=== PATIENT | female | born 1995 | race Caucasian/White ===

== ENCOUNTER 2021-03-13 08:51 | Outpatient (REF) | payer OTHER, SELFPAY | END 2021-03-13 08:52 | disposition home or self-care (01) | LOC: HO.LAB 08:51 | PROVIDERS: Visit Provider Internal Medicine | DX: Z13.89 Encounter for screening for other disorder (principal) ==

== ENCOUNTER 2021-03-13 08:58 | Emergency (ER) | payer OTHER, SELFPAY ==
--- NOTE | ~2021-03-13 | XR_ITS ---
EXAMINATION: XR CHEST CLINICAL INFORMATION: Shortness breath, chest pain. COMPARISON: None TECHNIQUE: PA and lateral views of the chest are obtained. FINDINGS: No significant abnormality is noted involving the heart, lungs, mediastinum, bony thorax or soft tissues. XR/XR chest 2V IMPRESSION: Unremarkable examination.
--- NOTE | 2021-03-13 09:11 | ECG_ITS ---
Test Reason : chest pain Blood Pressure : / mmHG Vent. Rate : 090 BPM Atrial Rate : 090 BPM P-R Int : 116 ms QRS Dur : 084 ms QT Int : 390 ms P-R-T Axes : 042 075 126 degrees QTc Int : 477 ms Normal sinus rhythm with sinus arrhythmia Normal ECG No previous ECGs available Referred By: Avery Olson Electronically Signed By:Miguel Pettit
[2021-03-13 09:12] VITALS: BP 143/73; PULSE 93; RESP 16; TEMP 37.1; O2SAT 98; BMI 24.4
[2021-03-13 12:03] VITALS: BP 110/75; PULSE 88; RESP 15; TEMP 37.4; O2SAT 98
[2021-03-13 12:24] LABS: MANUAL DIFF FLAG NO
[2021-03-13 12:26] LABS: Appearance Urine CLOUDY; Basophils Percent Auto 0.2 % (0-2); Color Urine YELLOW; Eosinophils Absolute Auto 0.1 X10*3/uL (0.0-0.4); Eosinophils Percent Auto 0.7 % (0-4); Glucose Urine UA NEG (NEG); Hematocrit 40.7 % (37.0-47.0); Hemoglobin 13.2 g/dl (12.0-16.0); Imm Gran Abs Auto 0.02 X10*3/uL (0.00-0.03); Imm Gran Pct Auto 0.2 % (0.0-0.4); Leukocyte Esterase Urine 3+ (NEG); Lymphocytes Percent Auto 11.4 % (20-40); Mean Corpuscular HGB Conc 32.4 g/dl (31.0-35.0); Mean Corpuscular Hemoglobin 28.9 pg (27.0-33.0); Mean Corpuscular Volume 89.3 fL (80.0-98.0); Mean Platelet Volume 10.8 fL (9.4-12.3); Monocytes Absolute Auto 0.7 X10*3/uL (0.1-1.2); Monocytes Percent Auto 7.8 % (2-11); Neutrophils Absolute Auto 7.1 x10*3/uL (2.0-8.3); Neutrophils Percent Auto 79.7 % (45-73); Nitrite Urine NEG (NEG); Platelet Count 292 X10*3/uL (160-400); Red Blood Count 4.56 X10*6/uL (4.20-5.50); Red Cell Distribution Width 12.5 % (11.0-16.0); Specific Gravity - Urine 1.015 (1.005-1.025); UACC Culture Trigger YES; Urine Blood NEG (NEG); Urine Ketones NEG (NEG); Urine Protein NEG (NEG-TRACE); White Blood Count 8.9 X10*3/uL (4.8-10.8)
[2021-03-13 12:28] LABS: UPreg QC Valid YES; Urine Pregnancy NEGATIVE (NEGATIVE)
[2021-03-13 12:39] LABS: COVID-19 Test Positive (Negative)
[2021-03-13 12:41] LABS: Squamous Epithelial Cell Urine 3+ /LPF
[2021-03-13 12:43] LABS: Bacteria Urine 2+ /LPF
[2021-03-13 12:45] LABS: RBC Urine 0 /HPF (0)
[2021-03-13 12:46] LABS: Alanine Aminotransferase 13 U/L (0-31); Albumin Level 4.6 g/dL (3.5-5.0); Alkaline Phosphatase 72 U/L (39-117); Aspartate Amino Transferase 16 U/L (5-31); Bilirubin Direct 0.2 mg/dL (0.0-0.5); Bilirubin Total 0.5 mg/dL (0.0-1.0); Total Protein 8.4 g/dL (6.5-8.0)
[2021-03-13 12:51] LABS: Troponin-I High Sensitivity < 3.5 ng/L (<3.5-17.0)
--- NOTE | 2021-03-13 13:25 | ED_ITS ---
HPI - Chest Pain General Chief Complaint: Chest Pain Stated Complaint: Chest Pain Time Seen by Provider: 03/13/21 12:46 Source: patient Mode of arrival: ambulatory Limitations: no limitations History of Present Illness HPI narrative: This is a 26-year-old female no known medical hx who presents to the emergency department with complaints of cough, body aches, chest pain, shortness of breath since this morning. She describes her chest pain as a crazy burning sensation localized in the substernal region without radiation. She tells me she is having a productive cough of white sputum that is intermittent in nature. She also reports shortness of breath on exertion. No shortness of breath at rest. Patient tells me that she [place] [employer] [place] she is around a lot of sick individuals. She is vaccinated against COVID-19. She denies headache, dizziness, nausea, vomiting, abdominal pain, weakness, vision changes. MD complaint: chest discomfort Onset (ago): day(s) (1) Timing of current episode: episodic Prior episodes: Yes Onset: during rest Pain location: substernal Pain radiation: none Severity: moderate Quality: burning Relieving factors: nothing Exacerbating factors: nothing Associated symptoms: cough Treatment prior to arrival: none Related Data Previous Rx's Medication Instructions Recorded cefuroxime axetil 250 mg tablet 250 mg PO BID 7 Days #14 tab 03/13/21 Allergies Allergy/AdvReac Type Severity Reaction Status Date / Time No Known Allergies Allergy Unverified 12/02/19 16:21 Review of Systems Review of Systems: Constitutional : No Weight loss, No Fever, No Chills, + Fatigue, + Malaise ENT/Mouth : No sore throat, No Rhinorrhea Eyes: No Eye Pain, No Swelling, No Redness Cardiovascular : + Chest Pain, No SOB, + Dyspnea on Exertion, No Orthopnea, No Edema, No Palpitations Respiratory : No Cough, No Sputum, No Wheezing Gastrointestinal : No Nausea, No Vomiting, No Diarrhea, No Constipation, No abdominal Pain, No Hematochezia, No Melena Genitourinary : No Dysuria, No Urinary Frequency, No Hematuria, Musculoskeletal : No joint pain, No Myalgias, No Joint Swelling Skin : No Skin Lesions, No rash Neuro : No Weakness, No Numbness, No Dizziness, No Headache All other systems reviewed and are negative Yes all other systems are reviewed and are negative [facility] Past Medical History Attestation statement: The following information was validated with the patient. Source: old records reviewed and nursing notes reviewed Medical History No known health problems Social History Social History Advance Directives: No Advance Directives Information Provided: No Patient : No Physical Exam Vital Signs: Vital Signs: Last Vital Signs Temp 99.3 F 03/13/21 12:03 Pulse 88 03/13/21 12:03 Resp 15 03/13/21 12:03 BP 110/75 03/13/21 12:03 Pulse Ox 98 03/13/21 12:03 BMI result Body Mass Index 24.4 VSS Appearance: Alert.? Oriented X3.? No acute distress.? Head: Normocephalic, atraumatic, no step-offs or deformities Eyes: Pupils equal, round and reactive to light.? ENT: Pharynx normal.? Neck: Normal inspection.? Neck supple.? CVS: Normal heart rate and rhythm.? Pulses normal.? Respiratory: No respiratory distress.? Breath sounds normal.? Abdomen: Soft and nontender.? Skin: Skin warm and dry.? Normal skin color.? Normal skin turgor.? Extremities: No lower extremity edema.? No calf ttp. 5/5 strength to bilateral upper and lower extremities Back: No midline tenderness, no C-spine tenderness, full range of motion, no CVA tenderness bilaterally Neuro: Oriented X 3.? No motor deficit.? No sensory deficit. Course Reevaluation(s) Reevaluation #1: CBC within normal limits. No acute electrolyte abnormalities, troponin negative. Urine with UTI. Patient noted to be COVID positive Time: 14:02 MDM - Chest Pain MDM Narrative Medical decision making narrative: 1328 26 yo F pmhx productive cough of white sputum, body aches, SOB, CP since this AM. Vaccinated Physical examination benign. Plan at this time is to obtain basic labs, COVID, troponin, UA, urine , EKG, chest x-ray. Medical Records Data Attestation: I reviewed the patient's medical records. Lab Data Attestation: I reviewed the patient's lab results. Result diagrams: 03/13/21 12:13 03/13/21 12:13 Labs: Lab Results 03/13/21 03/13/21 03/13/21 Range/Units 12:13 12:13 12:13 WBC 8.9 (4.8-10.8) X10*3/uL RBC 4.56 (4.20-5.50) X10*6/uL Hgb 13.2 (12.0-16.0) g/dl Hct 40.7 (37.0-47.0) % MCV 89.3 (80.0-98.0) fL MCH 28.9 (27.0-33.0) pg MCHC 32.4 (31.0-35.0) g/dl RDW 12.5 (11.0-16.0) % Plt Count 292 (160-400) X10*3/uL MPV 10.8 (9.4-12.3) fL Immature Gran % (Auto) 0.2 (0.0-0.4) % Neut % (Auto) 79.7 H (45-73) % Lymph % (Auto) 11.4 L (20-40) % [place] % (Auto) 7.8 (2-11) % Eos % (Auto) 0.7 (0-4) % Baso % (Auto) 0.2 (0-2) % Lymph # (Auto) 1.0 L (1.2-4.9) X10*3/uL [place] # (Auto) 0.7 (0.1-1.2) X10*3/uL Eos # (Auto) 0.1 (0.0-0.4) X10*3/uL Baso # (Auto) 0.0 (0.0-0.2) X10*3/uL Abs Immat Gran (auto) 0.02 (0.00-0.03) X10*3/uL Absolute Neuts (auto) 7.1 (2.0-8.3) x10*3/uL Absolute Nucleated RBC 0.000 (0.0-0.012) X10*3/uL Nucleated RBC % (auto) 0.0 (0.0-0.2) /100WBC D-Dimer High Sensitivty NG/ML Sodium 138 (135-145) mmol/L Potassium 4.0 (3.3-5.1) mmol/L Chloride 105 (96-108) mmol/L Carbon Dioxide 26 (22-29) mmol/L Anion Gap 11 L (12-20) BUN 10 (9-16) mg/dL Creatinine 0.80 (0.5-1.4) mg/dL Estim Creat Clear Calc 83.3 Estimated GFR > 60 Random Glucose 82 (60-115) mg/dL Calcium 10.0 (8.4-10.2) mg/dL Total Bilirubin 0.5 (0.0-1.0) mg/dL Direct Bilirubin 0.2 (0.0-0.5) mg/dL AST 16 (5-31) U/L ALT 13 (0-31) U/L Alkaline Phosphatase 72 (39-117) U/L Troponin I High Sens (<3.5-17.0) ng/L Total Protein 8.4 H (6.5-8.0) g/dL Albumin 4.6 (3.5-5.0) g/dL Urine Color Urine Appearance Urine pH (5.0-8.0) Ur Specific [place] (1.005-1.025) Urine Protein (NEG-TRACE) MG/DL Urine Glucose (UA) (NEG) MG/DL Urine Ketones (NEG) MG/DL Urine Blood (NEG) Urine Nitrite (NEG) Ur Leukocyte Esterase (NEG) Urine RBC (0) /HPF Urine WBC (0-4) /HPF Ur Squamous Epith Cells /LPF Urine Bacteria /LPF Urine Test (NEGATIVE) COVID-19 ([facility]) Positive A (Negative) COVID-19 Clin Com See Note 03/13/21 03/13/21 03/13/21 Range/Units 12:13 12:13 12:14 WBC (4.8-10.8) X10*3/uL RBC (4.20-5.50) X10*6/uL Hgb (12.0-16.0) g/dl Hct (37.0-47.0) % MCV (80.0-98.0) fL MCH (27.0-33.0) pg MCHC (31.0-35.0) g/dl RDW (11.0-16.0) % Plt Count (160-400) X10*3/uL MPV (9.4-12.3) fL Immature Gran % (Auto) (0.0-0.4) % Neut % (Auto) (45-73) % Lymph % (Auto) (20-40) % [place] % (Auto) (2-11) % Eos % (Auto) (0-4) % Baso % (Auto) (0-2) % Lymph # (Auto) (1.2-4.9) X10*3/uL [place] # (Auto) (0.1-1.2) X10*3/uL Eos # (Auto) (0.0-0.4) X10*3/uL Baso # (Auto) (0.0-0.2) X10*3/uL Abs Immat Gran (auto) (0.00-0.03) X10*3/uL Absolute Neuts (auto) (2.0-8.3) x10*3/uL Absolute Nucleated RBC (0.0-0.012) X10*3/uL Nucleated RBC % (auto) (0.0-0.2) /100WBC D-Dimer High Sensitivty NG/ML Sodium (135-145) mmol/L Potassium (3.3-5.1) mmol/L Chloride (96-108) mmol/L Carbon Dioxide (22-29) mmol/L Anion Gap (12-20) BUN (9-16) mg/dL Creatinine (0.5-1.4) mg/dL Estim Creat Clear Calc Estimated GFR Random Glucose (60-115) mg/dL Calcium (8.4-10.2) mg/dL Total Bilirubin (0.0-1.0) mg/dL Direct Bilirubin (0.0-0.5) mg/dL AST (5-31) U/L ALT (0-31) U/L Alkaline Phosphatase (39-117) U/L Troponin I High Sens < 3.5 (<3.5-17.0) ng/L Total Protein (6.5-8.0) g/dL Albumin (3.5-5.0) g/dL Urine Color YELLOW Urine Appearance CLOUDY Urine pH 6.0 (5.0-8.0) Ur Specific [place] 1.015 (1.005-1.025) Urine Protein NEG (NEG-TRACE) MG/DL Urine Glucose (UA) NEG (NEG) MG/DL Urine Ketones NEG (NEG) MG/DL Urine Blood NEG (NEG) Urine Nitrite NEG (NEG) Ur Leukocyte Esterase 3+ H (NEG) Urine RBC 0 (0) /HPF Urine WBC 10-14 H (0-4) /HPF Ur Squamous Epith Cells 3+ /LPF Urine Bacteria 2+ /LPF Urine Test NEGATIVE (NEGATIVE) COVID-19 ([facility]) (Negative) COVID-19 Clin Com 03/13/21 Range/Units 14:15 WBC (4.8-10.8) X10*3/uL RBC (4.20-5.50) X10*6/uL Hgb (12.0-16.0) g/dl Hct (37.0-47.0) % MCV (80.0-98.0) fL MCH (27.0-33.0) pg MCHC (31.0-35.0) g/dl RDW (11.0-16.0) % Plt Count (160-400) X10*3/uL MPV (9.4-12.3) fL Immature Gran % (Auto) (0.0-0.4) % Neut % (Auto) (45-73) % Lymph % (Auto) (20-40) % [place] % (Auto) (2-11) % Eos % (Auto) (0-4) % Baso % (Auto) (0-2) % Lymph # (Auto) (1.2-4.9) X10*3/uL [place] # (Auto) (0.1-1.2) X10*3/uL Eos # (Auto) (0.0-0.4) X10*3/uL Baso # (Auto) (0.0-0.2) X10*3/uL Abs Immat Gran (auto) (0.00-0.03) X10*3/uL Absolute Neuts (auto) (2.0-8.3) x10*3/uL Absolute Nucleated RBC (0.0-0.012) X10*3/uL Nucleated RBC % (auto) (0.0-0.2) /100WBC D-Dimer High Sensitivty < 150 NG/ML Sodium (135-145) mmol/L Potassium (3.3-5.1) mmol/L Chloride (96-108) mmol/L Carbon Dioxide (22-29) mmol/L Anion Gap (12-20) BUN (9-16) mg/dL Creatinine (0.5-1.4) mg/dL Estim Creat Clear Calc Estimated GFR Random Glucose (60-115) mg/dL Calcium (8.4-10.2) mg/dL Total Bilirubin (0.0-1.0) mg/dL Direct Bilirubin (0.0-0.5) mg/dL AST (5-31) U/L ALT (0-31) U/L Alkaline Phosphatase (39-117) U/L Troponin I High Sens (<3.5-17.0) ng/L Total Protein (6.5-8.0) g/dL Albumin (3.5-5.0) g/dL Urine Color Urine Appearance Urine pH (5.0-8.0) Ur Specific [place] (1.005-1.025) Urine Protein (NEG-TRACE) MG/DL Urine Glucose (UA) (NEG) MG/DL Urine Ketones (NEG) MG/DL Urine Blood (NEG) Urine Nitrite (NEG) Ur Leukocyte Esterase (NEG) Urine RBC (0) /HPF Urine WBC (0-4) /HPF Ur Squamous Epith Cells /LPF Urine Bacteria /LPF Urine Test (NEGATIVE) COVID-19 ([facility]) (Negative) COVID-19 Clin Com ECG Data ECG #1: Attestation: I personally reviewed and interpreted this ECG as follows: ECG interpretation date: 03/13/21 ECG interpretation time: 09:11 Prior ECG tracings: not available for review Interpretation: A ventricular rate of 90, QRS normal, P on a, QT/QTC normal. EKG shows normal sinus rhythm with sinus arrhythmia. No ST elevations or inversions that are concerning for ischemia. No previous to compare with Critical Care Time Critical Care Time Critical Care Time: No Discharge Plan Discharge Clinical Impression: COVID-19, Chest pain, Urinary tract infection Patient Disposition: Home, Self-Care Instructions: COVID-19 (Coronavirus Disease 2019) (ED) Additional Instructions: Take your medications as prescribed. If you were prescribed antibiotics today, it is important that you take your medication to their entirety, do not skip any doses, do not finish them early. Today you tested positive for COVID-19. Take Ibuprofen or Tylenol as needed for fevers or body aches. Quarantine for 14 days if you are not vaccinated or for 10 days if you are vaccinated. Drink plenty of fluids. Follow-up with your primary care provider this week. Return to the emergency department with new or worsening symptoms. In case of emergency call 911 Prescriptions: New cefuroxime axetil 250 mg tablet 250 mg PO BID 7 Days Qty: 14 RF: 0 Referrals: Physician,None [Primary Care Provider] - 2 days Stand Alone Forms: Work/School Release
[2021-03-13 13:54] LABS: Anion Gap 11 (12-20); Blood Urea Nitrogen 10 mg/dL (9-16); Carbon Dioxide 26 mmol/L (22-29); Chloride 105 mmol/L (96-108); Creatinine Clr Calc Pharmacy 83.3; Estimated Glomerular Filt Rate > 60; Glucose Random 82 mg/dL (60-115); Sodium 138 mmol/L (135-145)
[2021-03-13 14:33] LABS: D Dimer High Sensitivity < 150 NG/ML
== END 2021-03-13 15:11 | disposition home or self-care (01) ==
PROVIDERS: Physician Assistant; Emergency Provider Emergency Medicine
DX: U07.1 COVID-19 (principal); N39.0 Urinary tract infection, site not specified; R07.9 Chest pain, unspecified
CPT/HCPCS: 36415; 71046; 80048; 80076; 81001; 81025; 84484; 85025; 85379; 87086; 87635; 93005; 99283

== ENCOUNTER 2021-12-31 14:04 | Emergency (ER) | payer OTHER, SELFPAY ==
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
[2021-12-31 14:21] VITALS: BP 120/80; BP 141/86; PULSE 102; PULSE 87; RESP 16; TEMP 36.9; O2SAT 99; BMI 24.4
[2021-12-31] MEDS: Cyclobenzaprine HCl 5 MG TABLET PO (15:33)
[2021-12-31] MEDS: Ketorolac Tromethamine 15 MG/ML VIAL IM (15:34)
== END 2021-12-31 16:08 | disposition home or self-care (01) ==
PROVIDERS: Emergency Provider Emergency Medicine
DX: Z04.1 Encounter for examination and observation following transport accident (principal); M54.2 Cervicalgia; M54.6 Pain in thoracic spine
CPT/HCPCS: 70450; 72125; 96372; 99283; 99284; J1885

== ENCOUNTER 2022-02-11 08:14 | Outpatient (REF) | payer OTHER, SELFPAY ==
[2022-02-11 11:16] LABS: MANUAL DIFF FLAG NO
[2022-02-11 11:24] LABS: Hematocrit 38.7 % (37.0-47.0); Hemoglobin 12.3 g/dl (12.0-16.0); Mean Corpuscular HGB Conc 31.8 g/dl (31.0-35.0); Mean Corpuscular Hemoglobin 27.6 pg (27.0-33.0); Mean Platelet Volume 11.4 fL (9.4-12.3); Platelet Count 304 X10*3/uL (160-400); Red Blood Count 4.45 X10*6/uL (4.20-5.50); Red Cell Distribution Width 13.1 % (11.0-16.0); White Blood Count 5.7 X10*3/uL (4.8-10.8)
[2022-02-11 11:25] LABS: Basophils Percent Auto 0.2 % (0-2); Eosinophils Absolute Auto 0.1 X10*3/uL (0.0-0.4); Eosinophils Percent Auto 2.1 % (0-4); Imm Gran Abs Auto 0.02 X10*3/uL (0.00-0.03); Imm Gran Pct Auto 0.3 % (0.0-0.4); Lymphocytes Absolute Auto 1.9 X10*3/uL (1.2-4.9); Lymphocytes Percent Auto 32.8 % (20-40); Monocytes Absolute Auto 0.6 X10*3/uL (0.1-1.2); Monocytes Percent Auto 9.6 % (2-11); Neutrophils Absolute Auto 3.2 x10*3/uL (2.0-8.3)
[2022-02-11 13:08] LABS: Alanine Aminotransferase 13 U/L (0-31); Albumin Level 4.1 g/dL (3.5-5.0); Alkaline Phosphatase 64 U/L (39-117); Anion Gap 12 (12-20); Aspartate Amino Transferase 15 U/L (5-31); Bilirubin Total 0.5 mg/dL (0.0-1.0); Blood Urea Nitrogen 15 mg/dL (9-16); Calcium 9.2 mg/dL (8.4-10.2); Carbon Dioxide 23 mmol/L (22-29); Chloride 105 mmol/L (96-108); Cholesterol 167 mg/dL; Estimated Glomerular Filt Rate > 60; Glucose Fasting 79 mg/dL (60-99); HDL Cholesterol 54 mg/dL; LDL Cholesterol Calculated 105 mg/dl; Potassium 4.6 mmol/L (3.3-5.1); Sodium 135 mmol/L (135-145); Thyroid Stimulating Hormone 1.75 uIU/mL (0.32-4.0); Total Protein 7.7 g/dL (6.5-8.0); Triglycerides 42 mg/dL
== END 2022-02-11 08:15 | disposition home or self-care (01) ==
LOC: HO.10HDL 08:14
PROVIDERS: Visit Provider Internal Medicine
DX: Z00.00 Encounter for general adult medical examination without abnormal findings (principal); E78.00 Pure hypercholesterolemia, unspecified; F43.12 Post-traumatic stress disorder, chronic; F51.5 Nightmare disorder; R00.2 Palpitations
CPT/HCPCS: 36415; 80053; 80061; 84443; 85025

== ENCOUNTER 2022-10-24 09:45 | Outpatient (AMB) | payer OTHER, SELFPAY ==
[2022-10-24 10:03] VITALS: BP 128/86; PULSE 84; TEMP 36.9; O2SAT 99
--- NOTE | 2022-10-24 10:03 | MHC.OFFWIV ---
Intake Vital Signs 10/24/22 10:03 Height 5 ft BP 128/86 Blood Pressure Location Lt brachial Position Sitting Pulse 84 Pulse Source Pulse Oximeter Temp 98.4 F Temp Source Oral Pulse Oximetry (%) 99 Oxygen Delivery Method Room Air Intake Visit Reasons: EST/sore throat Intake Note: Pt is here today for sore throat Allergies No Known Allergies Allergy (Verified 10/24/22 10:22) HPI HPI Comments History of Present Illness Details The patient presents to urgent care for evaluation of sore throat. She states it started yesterday and kept her up all night last night. Pain is worse on the right and pain with swallowing. No fever chills. Patient has a history of which she is describing as peritonsillar abscess and is worried about this development. [facility] Medical History No known health problems Review of Systems Const Denies no additional complaints and Denies difficulty sleeping Eyes Denies blurry vision ENT Reports no additional complaints Card Reports no additional complaints, Denies chest pain and Denies dyspnea Resp Denies cough and Denies dyspnea GI Denies abdominal pain Musc Reports as per HPI Physical Exam Vital Signs: Last Vital Signs Temp 98.4 F 10/24/22 10:03 Pulse 84 10/24/22 10:03 BP 128/86 10/24/22 10:03 Pulse Ox 99 10/24/22 10:03 Oxygen Delivery Method Room Air 10/24/22 10:03 Const General: healthy appearing and no acute distress Orientation/consciousness: patient oriented x3 HEENT Other: pharyngeal erythema no tonsillar exudates. No peritonsillar abscess appreciated Mild cervical lymphadenopathy Eyes Corneas: corneas normal Pupils: Equal, round and reactive pupils present Chest Chest palpation & inspection: no tenderness Resp Effort & Inspection: normal respiratory effort and able to speak in complete sentences Neuro General: patient oriented x3 Cranial nerves: Yes Equal, round and reactive pupils present Psych Appearance: grossly normal Attitude: cooperative Results AMB Rapid Strep AMB Rapid Strep Negative Last Edit by Mary Gil CMA on 10/24/22 10:40 Assessment & Plan Assessment & Plan (1) Sore throat: Code(s): J02.9 - Acute pharyngitis, unspecified Plan Rapid strep test negative. No sign of peritonsillar abscess at this time. Likely viral however patient was advised that if she continues to have worsening symptoms and is still concerned about peritonsillar abscess to go to the emergency department where it can be addressed. Patient comfortable this plan. Orders: Orders AMB Rapid Strep Screen Today Z13.9 - Encounter for screening, unspecified Coding Level of Care Code Est Pt Level 3 (23835) Diagnoses Sore throat J02.9
== END 2022-10-24 11:17 | disposition home or self-care (01) ==
PROVIDERS: PCP Family Medicine; Visit Provider Emergency Medicine
DX: J02.9 Acute pharyngitis, unspecified (principal)
CPT/HCPCS: 87880; 99213

== ENCOUNTER 2022-10-25 09:06 | Emergency (ER) | payer OTHER, SELFPAY ==
--- NOTE | ~2022-10-25 | CT_ITS ---
EXAMINATION: CT SOFT TISSUE NECK WITH CONTRAST CLINICAL INFORMATION: Right-sided tonsillar swelling. Question [employer] P[employer]ER. COMPARISON: Neck CT 12/01/2017. TECHNIQUE: Following the administration of 100 mL of Omnipaque 300 intravenous contrast, helical imaging was performed in the axial plane with generation of coronal and sagittal reformatted images. This CT examination was performed using dose optimization techniques as appropriate, variously including the following: *Automated exposure control *Adjustment of mA and/or kV according to patient size (this includes techniques or standardized protocols for targeted exams where dose is matched to indication/reason for exam; i.e. extremities or head) *Use of iterative reconstruction technique DLP: 446 mGy-cm FINDINGS: The right palatine tonsil appears significantly enlarged with heterogeneous enhancement. The left palatine tonsils also mildly enlarged with some striated enhancement demonstrated. No well-defined rim-enhancing collection is seen in either tonsil. There is some inflammation and edema within the right lateral pharyngeal wall. There is no evidence of retropharyngeal collection. The nasopharynx appears normal. No oral cavity lesion is seen. Mildly prominent reactive appearing lymph nodes are seen bilaterally at level 2. The parotid and submandibular glands appear normal. The thyroid gland appears normal. No enlarged upper mediastinal lymph nodes are seen. There is no consolidation within the upper mediastinum. There is no acute intracranial abnormality. The major neck vessels demonstrate normal enhancement. The spine is intact without significant degenerative change. CT/CT soft tissue neck w IV con IMPRESSION: Significant enlargement of the right palatine tonsil with heterogeneous enhancement compatible with cellulitis and phlegmonous changes. No well-defined rim-enhancing collection is seen. No evidence of retropharyngeal collection. Mildly prominent reactive appearing lymph nodes are seen bilaterally at level 2.
[2022-10-25 09:25] VITALS: BP 110/69; PULSE 88; RESP 16; TEMP 37; O2SAT 97; BMI 26.3
[2022-10-25 09:58] LABS: IDNOW Serial# 08D9AD1C; Strep A Nucleic Acid Negative (Negative)
[2022-10-25 10:16] LABS: Influenza A PCR NEGATIVE (Negative); Influenza B PCR NEGATIVE (Negative); Resp Syncy Virus RNA Qual PCR NEGATIVE (Negative); SARS COV2 PCR INHOUSE NEGATIVE (Negative)
[2022-10-25 11:23] LABS: MANUAL DIFF FLAG NO
[2022-10-25 11:25] LABS: Basophils Percent Auto 0.1 % (0-2); Eosinophils Absolute Auto 0.1 X10*3/uL (0.0-0.4); Eosinophils Percent Auto 0.6 % (0-4); Hematocrit 39.8 % (37.0-47.0); Hemoglobin 12.9 g/dl (12.0-16.0); Imm Gran Abs Auto 0.05 X10*3/uL (0.00-0.03); Imm Gran Pct Auto 0.5 % (0.0-0.4); Lymphocytes Absolute Auto 1.3 X10*3/uL (1.2-4.9); Lymphocytes Percent Auto 12.4 % (20-40); Mean Corpuscular HGB Conc 32.4 g/dl (31.0-35.0); Mean Corpuscular Hemoglobin 28.2 pg (27.0-33.0); Mean Corpuscular Volume 87.1 fL (80.0-98.0); Mean Platelet Volume 10.7 fL (9.4-12.3); Monocytes Absolute Auto 0.6 X10*3/uL (0.1-1.2); Monocytes Percent Auto 5.5 % (2-11); Neutrophils Absolute Auto 8.2 x10*3/uL (2.0-8.3); Neutrophils Percent Auto 80.9 % (45-73); Platelet Count 298 X10*3/uL (160-400); Red Blood Count 4.57 X10*6/uL (4.20-5.50); Red Cell Distribution Width 12.3 % (11.0-16.0); White Blood Count 10.1 X10*3/uL (4.8-10.8)
[2022-10-25] MEDS: cefTRIAXone sodium 1 GM in 0.9 % Sodium Chloride 50 ML IV (11:26)
[2022-10-25 11:38] LABS: INTERNATIONAL NORM RATIO 1.1 (0.9-1.1)
[2022-10-25 11:41] LABS: Lactic Acid 0.7 mmol/L (0.5-2.0)
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
[2022-10-25 11:47] LABS: Alanine Aminotransferase 9 U/L (0-31); Albumin Level 4.3 g/dL (3.5-5.0); Alkaline Phosphatase 78 U/L (39-117); Anion Gap 13 (12-20); Aspartate Amino Transferase 16 U/L (5-31); Bilirubin Total 0.7 mg/dL (0.0-1.0); Blood Urea Nitrogen 11 mg/dL (9-16); C Reactive Protein 2.97 mg/dL (< or = 0.50); Calcium 9.6 mg/dL (8.4-10.2); Carbon Dioxide 23 mmol/L (22-29); Chloride 107 mmol/L (96-108); Creatinine Clr Calc Pharmacy 88.9; Estimated Glomerular Filt Rate > 60; Glucose Random 81 mg/dL (60-115); Magnesium 1.9 mg/dL (1.6-2.6); Potassium 3.8 mmol/L (3.3-5.1); Sodium 139 mmol/L (135-145); Total Protein 8.4 g/dL (6.5-8.0)
[2022-10-25 12:04] LABS: Erythrocyte Sedimentation Rate 36 MM/HR (0-20)
[2022-10-25] MEDS: methylPREDNISolone Sod Succ 125 MG/2 ML VIAL IVPUSH (12:11)
[2022-10-25] MEDS: ondansetron HCL 4 MG/2 ML VIAL IVPUSH (12:28)
[2022-10-25 12:35] VITALS: BP 122/70; PULSE 88; RESP 18; TEMP 37; O2SAT 98
[2022-10-25 13:17] LABS: HCG Quantitative < 2 mIU/mL
[2022-10-25] MEDS: iohexoL 350 MG/ML 100 ML INFUS..BTL 60 ML IV (14:02)
== END 2022-10-25 15:05 | disposition home or self-care (01) ==
PROVIDERS: Physician Assistant Medical; Emergency Provider Emergency Medicine Emergency Medical Services; PCP Internal Medicine
DX: J39.1 Other abscess of pharynx (principal); J02.9 Acute pharyngitis, unspecified; Z20.822 Contact with and (suspected) exposure to COVID-19; Z20.828 Contact with and (suspected) exposure to other viral communicable diseases; Z79.899 Other long term (current) drug therapy
CPT/HCPCS: 0241U; 36415; 70491; 80053; 83605; 83735; 84702; 85025; 85610; 85652; 86140; 87040; 87651; 96365; 96375; 99284; J0696; J2405; J2930; Q9967

== ENCOUNTER 2023-07-18 07:59 | Emergency (ER) | payer OTHER, SELFPAY ==
--- NOTE | ~2023-07-18 | XR_ITS ---
EXAMINATION: XR HAND, RIGHT CLINICAL INFORMATION: Pain COMPARISON: None available. TECHNIQUE: PA, lateral, and oblique views of the right hand. FINDINGS: The bones and soft tissues are normal. No fracture. Alignment is anatomic. Joint spaces are maintained. No erosions or soft tissue calcifications. XR/XR hand RT 2V IMPRESSION: Normal right hand.
[2023-07-18 08:02] VITALS: BP 119/66; PULSE 86; RESP 16; TEMP 36.6; O2SAT 99; BMI 26.4
--- NOTE | 2023-07-18 08:25 | PC.NURSE ---
Patient reports on friday cracked her knuckles and felt a pain in 2nd finger on right hand. States pain has gotten worse and now can barely move finger and it is painful to move thumb or middle finger. States was seen by PCP and was told it was tendonitis yesterday but feels as though something else is wrong because the pain shoots towards her wrist/ arm
[2023-07-18 10:15] LABS: MANUAL DIFF FLAG NO
[2023-07-18 10:17] LABS: Basophils Percent Auto 0.2 % (0-2); Eosinophils Absolute Auto 0.1 X10*3/uL (0.0-0.4); Eosinophils Percent Auto 0.8 % (0-4); Hematocrit 38.6 % (37.0-47.0); Hemoglobin 12.5 g/dl (12.0-16.0); Imm Gran Abs Auto 0.02 X10*3/uL (0.00-0.03); Imm Gran Pct Auto 0.2 % (0.0-0.4); Lymphocytes Absolute Auto 1.4 X10*3/uL (1.2-4.9); Lymphocytes Percent Auto 17.3 % (20-40); Mean Corpuscular HGB Conc 32.4 g/dl (31.0-35.0); Mean Corpuscular Hemoglobin 28.5 pg (27.0-33.0); Mean Corpuscular Volume 87.9 fL (80.0-98.0); Mean Platelet Volume 10.5 fL (9.4-12.3); Monocytes Absolute Auto 0.7 X10*3/uL (0.1-1.2); Monocytes Percent Auto 8.7 % (2-11); Neutrophils Percent Auto 72.8 % (45-73); Platelet Count 304 X10*3/uL (160-400); Red Blood Count 4.39 X10*6/uL (4.20-5.50); Red Cell Distribution Width 13.2 % (11.0-16.0); White Blood Count 8.3 X10*3/uL (4.8-10.8)
--- NOTE | 2023-07-18 10:22 | ED.EXTPRO ---
HPI - Extremity Problem General Chief complaint: Extremity Injury, Upper Stated complaint: r hand pain no known inj Time Seen by Provider: 07/18/23 09:15 Source: patient Mode of arrival: ambulatory Limitations: no limitations History of Present Illness HPI Narrative: 28-year-old female healthy with history of COVID in the past presents to ED for right index finger knuckle pain swelling and flexion of index finger in unable to extend, since friday. Patient states usually she cracked her knuckles on Friday she cracked her knuckles felt sort of a sudden right knuckle index right palmar aspect of index finger got swollen and red and patient's finger stuck in flexion position immediately after cracking knuckles. Patient states no fever or chills. Related Data Previous Rx's ?Medication ?Instructions ?Recorded cefuroxime axetil 250 mg tablet 250 mg PO BID 7 days #14 tabs 03/13/21 cyclobenzaprine 5 mg tablet 5 mg PO TID PRN muscle spasm 7 12/31/21 days #21 tabs acetaminophen 300 mg-codeine 30 mg 1 tab PO Q8H PRN pain #14 tabs 10/25/22 tablet amoxicillin 875 mg-potassium 1 tab PO BID 10 days #20 tabs 10/25/22 clavulanate 125 mg tablet cephalexin 500 mg capsule 500 mg PO Q12H 7 days #14 caps 07/18/23 ketorolac 10 mg tablet 10 mg PO QID PRN pain 5 days #20 07/18/23 tabs prednisone 20 mg tablet 40 mg (2 x 20 mg) PO DAILY 5 days 07/18/23 #10 tabs Allergies Allergy/AdvReac Type Severity Reaction Status Date / Time No Known Allergies Allergy Verified 07/18/23 08:04 Review of Systems Review of Systems: Right knuckle index finger pain Yes all other systems are reviewed and are negative [facility] Past Medical History Medical History No known health problems Social History Social History Advance Directives: No Advance Directives Information Provided: No Physical Exam Vital Signs: Vital Signs: Last Vital Signs Temp 98 F 07/18/23 12:21 Pulse 86 07/18/23 12:21 Resp 18 07/18/23 12:21 BP 119/66 07/18/23 12:21 Pulse Ox 99 07/18/23 12:21 O2 Del Method Room Air 07/18/23 12:21 BMI result Body Mass Index 26.4 Const: General: cooperative, healthy appearing, comfortable, no acute distress, well developed, alert, awake and Physically active Orientation/consciousness: oriented to person, oriented to place, oriented to time and patient oriented x3 HEENT: Head: Yes normal to inspection, Yes No palpable skull fracture present, Yes normocephalic and Yes atraumatic Eyes: General: appearance normal, both eyes and all related structures Neck: Neck: Yes normal visual inspection, Yes full ROM, Yes no lymphadenopathy, Yes no meningeal signs, Yes trachea midline, Yes supple, No anterior neck swelling and No tender Chest: Chest palpation & inspection: normal inspection of the chest and normal palpation of entire chest wall Resp: Effort & Inspection: normal respiratory effort and able to speak in complete sentences Auscultation: clear to auscultation bilaterally Cardio: Jugular venous distension: no JVD Heart sounds: S1 normal heart sound present and S2 normal heart sound present GI: Inspection: Yes normal to inspection Palpation (GI): Soft to palpation, not firm, nontender, no guarding and not rigid : General: No CVA tenderness and Yes no CVA tenderness Back/Spine/Pelvis: Back: no CVA tenderness, No CVA tenderness and No back tenderness Skin: General skin exam: no rashes or lesions noted, elasticity normal and turgor normal Neuro: General: oriented to person, oriented to place, oriented to time, patient oriented x3, gait normal, tone normal, moves all extremities, Normal light touch and pain sensation, no meningeal signs, no focal motor deficits, CN's II-XI intact bilaterally and normal sensation to monofilament Extrem: Other: patient not able to extend Right index finger. Righ index finger slightly more swollen than the other fingers. right index knuckle and palms swollen and slightly red.. Neurovascular exam intact. Psych: Appearance: grossly normal, well kempt and not disheveled Medications Administered Discontinued Medications Generic Name Dose Route Start Last Admin Trade Name Freq PRN Reason Stop Dose Admin Ketorolac Tromethamine 30 mg 07/18/23 10:38 07/18/23 10:50 Ketorolac Tromethamine 30 Mg/Ml Vial IVPUSH 07/18/23 10:39 30 mg ONCE ONE Administration Methylprednisolone Sodium Succinate 125 mg 07/18/23 11:35 07/18/23 11:40 Methylprednisolone Sod Succ 125 Mg/2 Ml Vial IVPUSH 07/18/23 11:36 125 mg ONCE ONE Administration Medical Decision Making Medical Decision Making [facility] Narrative: 28-year-old female presents to ED for right index finger stuck in flexion with swelling of the finger knuckle and palm of index finger. X-ray negative for any fracture. Differential could be possible tendon injury versus tenosynovitis. Labs ordered. Consult Orthopedic. 11:34am: Case discussed with [place] orthopedic surgeon Sarita who states presently patient does not show signs indicating infectious tenosynovitis. She recommends patient could be discharged. No need for antibiotics. This was discussed with patient. Patient difficulty moving finger with swelling at the knuckle after cracking knuckles patient explained she might have some tendon ligament injury. Patient given IV Solu-Medrol discharged with steroids. patient's white blood cell count normal. ESR CRP chronically elevated. Patient discharged with antiobitcs incase early cellulitits and explained worrisome signs and informed to return the ED if she has them. patient placed in finger splint and feel better after IV solumedrol Differential Diagnosis Differential Diagnoses: The differential diagnosis associated with the presentation includes ( finger sprain, tendon sprain, tendinitis, tenosynovitis.) Admission/Observation Consideration of admission/observation: Escalation of care including admission/observation considered Consult Healthcare Provider Management of the patient was discussed with: Boat Pilot ([facility] Orthpedic Surgeon Sarita Morales) Lab Data [facility] Lab Attestation statement: I reviewed the patient's lab results. 07/18/23 10:11 07/18/23 10:11 Labs: Lab Results 07/18/23 07/18/23 Range/Units 10:11 10:45 WBC 8.3 (4.8-10.8) X10*3/uL RBC 4.39 (4.20-5.50) X10*6/uL Hgb 12.5 (12.0-16.0) g/dl Hct 38.6 (37.0-47.0) % MCV 87.9 (80.0-98.0) fL MCH 28.5 (27.0-33.0) pg MCHC 32.4 (31.0-35.0) g/dl RDW 13.2 (11.0-16.0) % Plt Count 304 (160-400) X10*3/uL MPV 10.5 (9.4-12.3) fL Immature Gran % (Auto) 0.2 (0.0-0.4) % Neut % (Auto) 72.8 (45-73) % Lymph % (Auto) 17.3 L (20-40) % Boundary % (Auto) 8.7 (2-11) % Eos % (Auto) 0.8 (0-4) % Baso % (Auto) 0.2 (0-2) % Lymph # (Auto) 1.4 (1.2-4.9) X10*3/uL Boundary # (Auto) 0.7 (0.1-1.2) X10*3/uL Eos # (Auto) 0.1 (0.0-0.4) X10*3/uL Baso # (Auto) 0.0 (0.0-0.2) X10*3/uL Abs Immat Gran (auto) 0.02 (0.00-0.03) X10*3/uL Absolute Neuts (auto) 6.0 (2.0-8.3) x10*3/uL Absolute Nucleated RBC 0.000 (0.0-0.012) X10*3/uL Nucleated RBC % (auto) 0.0 (0.0-0.2) /100WBC ESR 23 H (0-20) MM/HR Sodium 137 (135-145) mmol/L Potassium 3.9 (3.3-5.1) mmol/L Chloride 107 (96-108) mmol/L Carbon Dioxide 21 L (22-29) mmol/L Anion Gap 13 (12-20) BUN 8 L (9-16) mg/dL Creatinine 0.75 (0.5-1.4) mg/dL Estim Creat Clear Calc 90.4 Estimated GFR > 60 Random Glucose 80 (60-115) mg/dL Lactic Acid 1.4 (0.5-2.0) mmol/L Calcium 9.6 (8.4-10.2) mg/dL Total Bilirubin 0.5 (0.0-1.0) mg/dL AST 16 (5-31) U/L ALT 19 (0-31) U/L Alkaline Phosphatase 66 (39-117) U/L C-Reactive Protein 0.66 H (< or = 0.50) mg/dL Total Protein 7.8 (6.5-8.0) g/dL Albumin 4.0 (3.5-5.0) g/dL Independent Interpretation I performed an independent interpretation of an: Plain X-Ray Radiology Impression Discussion of test interpretation with radiology: I have reviewed the radiologist's reading. Independent Historian Clinical information obtained from an independent historian. History obtained from or confirmed by: Other (patient) External Record Review External record reviewed: Other (prior visits) Prescription Management I considered prescription management with: Pain Medication and Other ( Steroid) Discharge Plan Discharge Clinical Impression: Finger sprain Patient Disposition: Home, Self-Care Instructions: Finger Sprain (ED) Additional Instructions: orthopedic surgery team does not believe you have an infection in your tendon or finger. Probably injured tendon or ligament with when cracking knuckles. He will be discharged with steroids and pain medication. Return to the ED immediately for increased swelling, redness, bluish black discoloration, warmth, pus discharge, red streaks, fever, chills, or any other concerning symptoms. Recommend follow-up with primary care provider and orthopedic surgeon. You may need an MRI to check for any ligament tendon tear in your finger. Prescriptions: New prednisone 20 mg tablet 40 mg PO DAILY 5 Days Qty: 10 0RF ketorolac 10 mg tablet 10 mg PO QID PRN (Reason: pain) 5 Days Qty: 20 0RF Rx Instructions: Patient receive 30 mg IV Toradol. Take with food cephalexin 500 mg capsule 500 mg PO Q12H 7 Days Qty: 14 0RF No Action cefuroxime axetil 250 mg tablet 250 mg PO BID 7 Days Qty: 14 0RF cyclobenzaprine 5 mg tablet 5 mg PO TID PRN (Reason: muscle spasm) 7 Days Qty: 21 0RF amoxicillin-pot clavulanate 875-125 mg tablet 1 tab PO BID 10 Days Qty: 20 0RF acetaminophen-codeine 300-30 mg tablet 1 tab PO Q8H PRN (Reason: pain) Qty: 14 0RF Referrals: [facility] [place] [facility] [Provider Group] ( Possible tendon injury of right index finger. Will need MRI) Stand Alone Forms: Work/School Release Interventions: ED Discharge Assessment Last Done: 07/18/23 12:21 Discharge Date/Time: 07/18/23 12:22 Print Language: Nepali
[2023-07-18 10:35] LABS: Alanine Aminotransferase 19 U/L (0-31); Alkaline Phosphatase 66 U/L (39-117); Anion Gap 13 (12-20); Aspartate Amino Transferase 16 U/L (5-31); Bilirubin Total 0.5 mg/dL (0.0-1.0); Blood Urea Nitrogen 8 mg/dL (9-16); C Reactive Protein 0.66 mg/dL (< or = 0.50); Calcium 9.6 mg/dL (8.4-10.2); Carbon Dioxide 21 mmol/L (22-29); Chloride 107 mmol/L (96-108); Creatinine Clr Calc Pharmacy 90.4; Estimated Glomerular Filt Rate > 60; Glucose Random 80 mg/dL (60-115); Potassium 3.9 mmol/L (3.3-5.1); Sodium 137 mmol/L (135-145); Total Protein 7.8 g/dL (6.5-8.0)
[2023-07-18] MEDS: Ketorolac Tromethamine 30 MG/ML VIAL IVPUSH (10:50)
[2023-07-18 10:55] LABS: Erythrocyte Sedimentation Rate 23 MM/HR (0-20)
[2023-07-18 11:05] LABS: Lactic Acid 1.4 mmol/L (0.5-2.0)
[2023-07-18] MEDS: methylPREDNISolone Sod Succ 125 MG/2 ML VIAL IVPUSH (11:40)
--- NOTE | 2023-07-18 12:17 | MHC.EDTECH ---
pt's finger was splinted, had no complaints, and tolerated well
[2023-07-18 12:21] VITALS: BP 119/66; PULSE 86; RESP 18; TEMP 36.6; O2SAT 99
== END 2023-07-18 12:22 | disposition home or self-care (01) ==
PROVIDERS: Physician Assistant; Emergency Provider Emergency Medicine; PCP Internal Medicine
DX: S63.610A Unspecified sprain of right index finger, initial encounter (principal); X58.XXXA Exposure to other specified factors, initial encounter; Y93.9 Activity, unspecified; Y92.9 Unspecified place or not applicable; Y99.9 Unspecified external cause status
CPT/HCPCS: 36415; 73120; 80053; 83605; 85025; 85652; 86140; 87040; 96374; 96375; 99283; 99284; J1885; J2919

== ENCOUNTER 2023-07-29 10:07 | Outpatient (REF) | payer OTHER, SELFPAY | END 2023-07-29 10:08 | disposition home or self-care (01) | LOC: HO.HOSX 10:07 | PROVIDERS: Visit Provider Orthopaedic Surgery | DX: Z13.89 Encounter for screening for other disorder (principal) ==

== ENCOUNTER 2023-09-02 15:00 | Outpatient (RCR) | payer OTHER, SELFPAY ==
--- NOTE | 2023-08-19 16:30 | MHC.OT.EP ---
[address] [phone] Occupational Therapy Plan of Care Patient Name: Yadi Puente Date of Evaluation: 08/19/23 Diagnosis: R IF pain / tenosynovitis Pain Location: MP J (w/ hyperextension) & volar plate of pt's IF Pain Score: 5 Pain Scale Used: Numeric (0 - 10) Aggravating Factors: typing, gripping, using her R hand Alleviating Factors: tylenol Assessment: Pt reports the first week of July she was Cracking her knuckles and felt pain in her IF. The pain increased overtime and she went to the ED where she was treated w/ antibiotics and a steroid (oral). She reports she began to feel a bit better after her ED trip; but when she used her hand the pain and inflammation would return. She saw a hand MD in [facility] (Dr. Hopper) where she had an X-ray which was negative for fx and was diagnosed w/ tendonitis. He reviewed/ discussed immobilization of her IF. Pt was referred by her PC to OT therapy to decrease pain and increase the functional use of her R hand Frequency and Duration: The patient will be seen 1 x a week for 4 weeks Short Term Goals: Pt will be compliant w/ her HEP Pt will report 2/10 pain post work day Pt will be compliant w/ immobilization of her IF Mcc Goals: Pt will make a pain free composite fist Pt will decrease edema of her R transmetacarpal to 17cm Pt will return to PLOF Treatment Plan: Therapeutic Exercise Therapeutic Activity Home Exercise Program Splinting Neuro Re-ed Patient Education Desensitization/Sensory Re-ed Edema Control ADL Training Ultrasound NMES Iontophoresis Paraffin Fluidotherapy MHP Cold Packs Joint Mobilization Soft Tissue Mobilization Kinesiotaping Other (see comments) review discuss splinting next visit Electronically Signed By: Kiana Fay OTR/L Please Sign and return to therapist. Thank you once again for your referral.
== END 2023-09-25 09:07 | disposition home or self-care (01) ==
LOC: HO.OT 15:00
PROVIDERS: PCP Internal Medicine; Visit Provider Internal Medicine
DX: M65.841 Other synovitis and tenosynovitis, right hand (principal)
CPT/HCPCS: 97033; 97035; 97140; 97165; 97535

== ENCOUNTER 2024-12-22 07:57 | Outpatient (REF) | payer OTHER, SELFPAY ==
--- OUTSIDE RECORDS SUMMARY | 2024-12-22 08:03 | XMS_ITS ---
Author Name [facility] Organization Unknown History of Medication Use Medication Directions Dispensed Refills Start Date End Date Stat us acetaminophen 300 mg-codeine 30 mg tablet TAKE 1 TABLET BY MOUTH EVERY 8 HOURS NEEDED FOR PAIN active amoxicillin 875 mg-potassium clavulanate 125 mg tablet TAKE 1 TABLET BY MOUTH TWICE A DAY FOR 10 DAYS active azithromycin 250 mg tablet TAKE 2 TABS BY MOUTH IMMEDIATLY THEN ONE DAILY DIRECTED active cephalexin 500 mg capsule active fluticasone propionate 50 mcg/actuation nasal spray,suspension ONE SPREY NASAL ONCE A DAY active ketorolac 10 mg tablet a ctive naproxen 500 mg tablet a ctive oxycodone 5 mg/5 mL oral solution TAKE 4 ML BY MOUTH EVERY SIX HOURS NEEDED FOR PAIN active prednisone 20 mg tablet 1 TAB(S) ORAL TAKE 1 TABLET BY MOUTH TWICE DAILY FOR 5 DAYS, THEN 1 TABLET DAILY active Problems Problem Status Onset Date Problem Type Date of Resoluti on Source Acquired trigger finger of right index finger active 2023-07-30 ProblemAct ENS_AO NECT Encounters Encounter Type Encounter Reason Primary Diagnosis Location Date Ambulatory [facility] [place] 07/31/2023 Ambulatory [facility] [place] 07/30/2023 Ambulatory [facility] [place] 07/30/2023 Ambulatory [facility] [place] 07/28/2023
[2024-12-22 08:54] LABS: MANUAL DIFF FLAG NO
[2024-12-22 08:55] LABS: Hematocrit 36.7 % (37.0-47.0); Hemoglobin 12.7 g/dl (12.0-16.0); Imm Gran Abs Auto 0.02 X10*3/uL (0.00-0.03); Imm Gran Pct Auto 0.3 % (0.0-0.4); Lymphocytes Absolute Auto 2.0 X10*3/uL (1.2-4.9); Mean Corpuscular HGB Conc 34.6 g/dl (31.0-35.0); Mean Corpuscular Hemoglobin 30.2 pg (27.0-33.0); Mean Corpuscular Volume 87.4 fL (80.0-98.0); NRBC Abs Auto 0.000 X10*3/uL (0.0-0.012); NRBC Pct Auto 0.0 /100WBC (0.0-0.2); Platelet Count 260 X10*3/uL (160-400); Red Blood Count 4.20 X10*6/uL (4.20-5.50); White Blood Count 7.5 X10*3/uL (4.8-10.8)
[2024-12-22 09:28] LABS: Ferritin 50 ng/mL (10-122); Thyroid Stimulating Hormone 1.91 uIU/mL (0.32-4.0)
[2024-12-22 09:36] LABS: Vitamin B12 443 pg/mL (200-900)
== END 2024-12-22 07:58 | disposition home or self-care (01) ==
LOC: HO.10HDL 07:57
PROVIDERS: Visit Provider Internal Medicine
DX: F32.2 Major depressive disorder, single episode, severe without psychotic features (principal); F51.5 Nightmare disorder; R42 Dizziness and giddiness
CPT/HCPCS: 36415; 82607; 82728; 84443; 85025